=== PATIENT | male | born 1940 | race African-American/Black ===

== ENCOUNTER 2021-10-21 20:10 | Inpatient (IN) | payer MEDICARE, MEDICAID ==
[~2021-10-21] VITALS: Ht 167.6 cm; Wt 94.3 kg
[~2021-10-21 20:10] MED LIST: SEE MED SHEET
[2021-10-21] MEDS ORDERED: NITROGLYCERIN 0.4MG TABLET SL SL PRN (22:00)
[2021-10-21] MEDS ORDERED: ASPIRIN 81MG TABLET PO ONE (22:00)
[2021-10-22 00:58] LABS: BASOPHILS % 2.1 % (0.0-2.0); EOSINOPHILS % 1.3 % (0.0-5.0); HEMATOCRIT. 38.7 % (42.0-52.0); HEMOGLOBIN. 12.3 g/dL (14.0-18.0); LYMPHOCYTES % 21.6 % (20.0-50.0); MEAN CORPUSCULAR HEMOGLOBIN 27.4 pg (28.0-32.0); MEAN CORPUSCULAR VOLUME 86.3 fL (80.0-94.0); MEAN PLATELET VOLUME 9.4 fl (7.4-10.4); MONOCYTES % 7.2 % (2.0-8.0); NEUTROPHILS % 67.8 % (40.0-76.0); PLATELET 535 x1000/uL (130-400); RED BLOOD CELL COUNT 4.48 mill/uL (4.7-6.1); RED CELL DISTRIBUTION WIDTH 16.6 % (11.6-14.6)
[2021-10-22 01:13] LABS: CHLORIDE 111 mEq/L (98-107)
[2021-10-22] MEDS ORDERED: ASPIRIN 81MG TABLET PO NR (02:22)
[2021-10-22] MEDS ORDERED: MORPHINE SULFATE 4 MG/ML CPJ (NOT FOR IM USE) IV ONE (03:00)
[2021-10-22] MEDS ORDERED: GUAIFENESIN 200MG/10ML SUGAR FREE UDC PO PRN (07:30)
[2021-10-22] MEDS ORDERED: DOCUSATE SODIUM 100MG CAPSULE PO PRN (07:30)
[2021-10-22] MEDS ORDERED: CLONIDINE 0.1MG TABLET PO PRN (07:30)
[2021-10-22] MEDS ORDERED: ONDANSETRON HCL 4MG/2ML INJ IV PRN (07:30)
[2021-10-22] MEDS ORDERED: IPRATROPIUM/ALBUTEROL 0.5-3(2.5)MG/3ML NEB NEB PRN (07:30)
[2021-10-22] MEDS ORDERED: ACETAMINOPHEN 325MG TABLET PO PRN ×2 (07:30)
[2021-10-22] MEDS ORDERED: MAGNESIUM/ALUMINUM HYDROXIDE/SIMETHICONE 30ML UDC PO PRN (07:30)
[2021-10-22] MEDS ORDERED: NITROGLYCERIN 0.4MG TABLET SL SL PRN (07:30)
[2021-10-22] MEDS: ENOXAPARIN 40MG/0.4ML SYR SUBCUT SCH (09:04)
[2021-10-22] MEDS: ASPIRIN 325MG EC TABLET PO SCH (09:04)
[2021-10-22] MEDS: FAMOTIDINE 20MG TABLET PO SCH (09:04)
[2021-10-22 12:00] VITALS: BP 127/75
[2021-10-22] MEDS ORDERED: PREG200C PO (12:16)
[2021-10-22] MEDS ORDERED: LOSA-20 PO (12:16)
[2021-10-22] MEDS ORDERED: TRAM50TA PO ×2 (12:16→19:51)
[2021-10-22 12:18] VITALS: BP 125/69
[2021-10-22 16:00] VITALS: BP 125/69
[2021-10-22] MEDS ORDERED: LANS15CA17 PO (19:51)
[2021-10-22] MEDS ORDERED: PREG150C PO (19:51)
[2021-10-22] MEDS ORDERED: METH-773 PO (19:51)
[2021-10-22] MEDS ORDERED: OMEP20TA23 PO (19:51)
[2021-10-22] MEDS ORDERED: TAMS-11 PO (19:51)
[2021-10-22] MEDS ORDERED: LOSA50TA41 PO (19:51)
[2021-10-22 20:00] VITALS: BP 136/70
[2021-10-22] MEDS: TRAMADOL 50MG TABLET PO PRN (20:30)
[2021-10-22] MEDS ORDERED: ZOLPIDEM TARTRATE 5MG TABLET PO PRN (21:00)
[2021-10-22 21:45] LABS: CREATINE KINASE MB FRACTION 2.4 ng/mL (0.5-3.6)
[2021-10-22 23:17] LABS: *AMPHETAMINES SCREEN URINE NEGATIVE (NEGATIVE); *BARBITURATES SCREEN URINE NEGATIVE (NEGATIVE); *BENZODIAZEPINES SCREEN URINE NEGATIVE (NEGATIVE); *COCAINE SCREEN URINE NEGATIVE (NEGATIVE); CANNABINOID URINE SCREEN NEGATIVE (NEGATIVE); METHADONE URINE SCREEN NEGATIVE (NEGATIVE); OPIATES URINE SCREEN PRESUMTIVE POSITIVE (NEGATIVE); PHENCYCLIDINE URINE SCREEN NEGATIVE (NEGATIVE)
[2021-10-23] VITALS (7 sets, daily range): BP systolic 129–150; BP diastolic 71–77
[2021-10-23 00:13] LABS: CREATINE KINASE MB FRACTION 2.3 ng/mL (0.5-3.6)
[2021-10-23] MEDS ORDERED: IODIXANOL 320MG/ML 100 ML BOTTLE IV ONE ×2 (07:34→08:26)
[2021-10-23] MEDS ORDERED: HEPARIN 1000 UNITS/ML 10ML ONE (07:34)
[2021-10-23] MEDS ORDERED: LIDOCAINE HCL 1% 10 MG/ML 10ML VIAL ONE (07:35)
[2021-10-23] MEDS ORDERED: FENTANYL CITRATE/PF 50MCG/ML 2ML VIAL ONE (08:26)
[2021-10-23] MEDS ORDERED: MIDAZOLAM HCL 2 MG/2 ML VIAL ONE (08:26)
[2021-10-23] MEDS ORDERED: DIPHENHYDRAMINE 50MG/ML VIAL ONE (08:26)
[2021-10-23] MEDS ORDERED: VERAPAMIL HCL 2.5 MG/1 ML 2ML VIAL IV ONE (08:26)
[2021-10-23] MEDS: FAMOTIDINE 20MG TABLET PO SCH ×2 (09:00→14:51)
[2021-10-23] MEDS: ASPIRIN 325MG EC TABLET PO SCH ×2 (09:00→14:51)
[2021-10-23] MEDS: ENOXAPARIN 40MG/0.4ML SYR SUBCUT SCH (09:00)
[2021-10-23] MEDS ORDERED: NALOXONE HCL 0.4MG/ML VIAL IV PRN (10:00)
[2021-10-23] MEDS ORDERED: ATROPINE SULFATE 1MG/10ML SYR IV PRN (10:00)
[2021-10-23 15:43] LABS: BASOPHILS % 3.7 % (0.0-2.0); EOSINOPHILS % 1.3 % (0.0-5.0); HEMATOCRIT. 36.6 % (42.0-52.0); HEMOGLOBIN. 11.5 g/dL (14.0-18.0); LYMPHOCYTES % 19.1 % (20.0-50.0); MEAN CORPUSCULAR HEMOGLOBIN 26.7 pg (28.0-32.0); MEAN PLATELET VOLUME 9.3 fl (7.4-10.4); MONOCYTES % 5.6 % (2.0-8.0); NEUTROPHILS % 70.3 % (40.0-76.0); PLATELET 501 x1000/uL (130-400); RED BLOOD CELL COUNT 4.31 mill/uL (4.7-6.1); RED CELL DISTRIBUTION WIDTH 16.1 % (11.6-14.6)
[2021-10-23 16:17] LABS: CHLORIDE 111 mEq/L (98-107)
[2021-10-23 16:25] LABS: PHOSPHORUS 2.1 mg/dL (2.5-4.9)
[2021-10-23] MEDS: SODIUM CHLORIDE 0.45% 500 ML IV SCH (20:00)
[2021-10-23] MEDS: PREGABALIN 25MG CAPSULE PO SCH (20:54)
[2021-10-24 04:00] VITALS: BP 146/73
[2021-10-24 08:00] VITALS: BP 149/82
[2021-10-24] MEDS: ENOXAPARIN 40MG/0.4ML SYR SUBCUT SCH (08:03)
[2021-10-24] MEDS: ASPIRIN 325MG EC TABLET PO SCH (08:07)
[2021-10-24] MEDS: PREGABALIN 25MG CAPSULE PO SCH ×2 (08:08→20:50)
[2021-10-24] MEDS: FAMOTIDINE 20MG TABLET PO SCH (08:08)
[2021-10-24 08:17] LABS: BASOPHILS % 2.2 % (0.0-2.0); EOSINOPHILS % 0.6 % (0.0-5.0); HEMATOCRIT. 37.9 % (42.0-52.0); HEMOGLOBIN. 12.1 g/dL (14.0-18.0); LYMPHOCYTES % 16.3 % (20.0-50.0); MEAN CORPUSCULAR HEMOGLOBIN 27.1 pg (28.0-32.0); MEAN PLATELET VOLUME 9.4 fl (7.4-10.4); MONOCYTES % 5.6 % (2.0-8.0); NEUTROPHILS % 75.3 % (40.0-76.0); PLATELET 553 x1000/uL (130-400); RED BLOOD CELL COUNT 4.46 mill/uL (4.7-6.1); RED CELL DISTRIBUTION WIDTH 16.3 % (11.6-14.6)
[2021-10-24 12:00] VITALS: BP 142/69
[2021-10-24 16:00] VITALS: BP 148/78
[2021-10-24 20:00] VITALS: BP 148/73
[2021-10-24] MEDS: TRAMADOL 50MG TABLET PO PRN (20:49)
[2021-10-25] VITALS: BP 145/70
[2021-10-25 04:00] VITALS: BP 136/76
[2021-10-25 08:00] VITALS: BP 147/75
[2021-10-25] MEDS: ASPIRIN 325MG EC TABLET PO SCH (08:11)
[2021-10-25] MEDS: PREGABALIN 25MG CAPSULE PO SCH (08:11)
[2021-10-25] MEDS: TRAMADOL 50MG TABLET PO PRN (08:12)
[2021-10-25] MEDS: FAMOTIDINE 20MG TABLET PO SCH (08:12)
[2021-10-25] MEDS: ENOXAPARIN 40MG/0.4ML SYR SUBCUT SCH (08:13)
[2021-10-25 10:37] VITALS: BP 147/75
[2021-10-25 12:00] VITALS: BP 145/73
== END 2021-10-25 12:15 | disposition home or self-care (01) | DRG 286 ==
LOC: ER 20:10 → MICUSO 10-22 03:54 → 8WST 10-22 11:57
PROVIDERS: ADMIT Internal Medicine; ATTEND Internal Medicine
PROC: 4A023N7 Measurement of Cardiac Sampling and Pressure, Left Heart, Percutaneous Approach (ICD-10-PCS; principal; 2021-10-23)
PROC: B211YZZ Fluoroscopy of Multiple Coronary Arteries using Other Contrast (ICD-10-PCS; 2021-10-23)
DX: R07.9 Chest pain, unspecified (principal); N17.0 Acute kidney failure with tubular necrosis; I25.110 Atherosclerotic heart disease of native coronary artery with unstable angina pectoris; I11.9 Hypertensive heart disease without heart failure; Z20.822 Contact with and (suspected) exposure to COVID-19; D63.8 Anemia in other chronic diseases classified elsewhere; R73.03 Prediabetes; G62.9 Polyneuropathy, unspecified; I44.7 Left bundle-branch block, unspecified; F12.90 Cannabis use, unspecified, uncomplicated; Z85.6 Personal history of leukemia
CPT/HCPCS: 36415; 71045; 80048; 80053; 80061; 80305; 82550; 82553; 82607; 82746; 83036; 83540; 83550; 83735; 83880; 84100; 84443; 84484; 85025; 87426; 93005; 93306; 93458; 93970; 97161; 97162; 97535; 99285; C1769; C1887; C1893; J1200; J1644; J1650; J2250; J2270; J3010; J3490; Q9967

== ENCOUNTER 2024-04-25 15:26 | Emergency (ER) | payer MEDICARE, MEDICAID ==
[~2024-04-25] VITALS: Ht 170.2 cm; Wt 87.0 kg
[~2024-04-25 15:26] MED LIST changes: +LANS15CA17 PO; +LOSA-20 PO; +LOSA50TA41 PO; +METH-773 PO; +OMEP20TA23 PO; +PREG150C PO; +PREG200C PO; -SEE MED SHEET; +TAMS-11 PO; +TRAM50TA PO
[2024-04-25 15:31] VITALS: O2SAT 96
[2024-04-25 15:39] VITALS: BP 131/83; PULSE 74; RESP 18; TEMP 98.3; O2SAT 99
[2024-04-25] MEDS ORDERED: TOPUD MT (18:22)
== END 2024-04-25 18:41 | disposition home or self-care (01) ==
LOC: ER 15:26
DX: G89.29 Other chronic pain (principal); F12.90 Cannabis use, unspecified, uncomplicated; Z88.0 Allergy status to penicillin; Z76.0 Encounter for issue of repeat prescription; I25.10 Atherosclerotic heart disease of native coronary artery without angina pectoris; Z98.890 Other specified postprocedural states
CPT/HCPCS: 99282